=== PATIENT | female | born 1970 | race Caucasian/White ===

== ENCOUNTER → 2018-08-29 | Outpatient (CLI) | payer OTHER ==
--- NOTE | 2018-08-29 15:37 | Diagnostic Imaging Report ---
TECHNIQUE: Magnetic resonance imaging of the RIGHT HIP was performed WITHOUT injected contrast. HISTORY: Pain COMPARISON: None available. FINDINGS: Bone: Red marrow reconversion. No osteonecrosis or acute fracture. Femoroacetabular Joint: Acetabular labrum: No displaced labral tear. Articular Cartilage: No focal defect. Muscle and tendons: Gluteal tendons on the greater trochanter are intact. Overlying bursitis. Soft tissues: Otherwise, unremarkable. IMPRESSION: Right trochanteric bursitis Right marrow reconversion. Signed by: Dr. Fred Ann M.D. on 08/29/2018 3:33 PM
== END ==
LOC: MRI 14:25
PROVIDERS: ATTEND Specialist
DX: S76.011A Strain of muscle, fascia and tendon of right hip, initial encounter (principal)

== ENCOUNTER 2018-10-09 15:51 | Outpatient (RCR) | payer OTHER | END 2018-10-16 | LOC: PT 15:51 | PROVIDERS: ATTEND Specialist | DX: S76.011D Strain of muscle, fascia and tendon of right hip, subsequent encounter (principal); M25.551 Pain in right hip; M25.651 Stiffness of right hip, not elsewhere classified; M62.81 Muscle weakness (generalized); R26.89 Other abnormalities of gait and mobility ==

== ENCOUNTER 2018-10-22 14:52 | Outpatient (RCR) | payer OTHER | END 2018-11-13 | LOC: PT 14:52 | PROVIDERS: ATTEND Specialist | DX: S76.011D Strain of muscle, fascia and tendon of right hip, subsequent encounter (principal); M62.81 Muscle weakness (generalized); M25.551 Pain in right hip; M25.651 Stiffness of right hip, not elsewhere classified; R26.89 Other abnormalities of gait and mobility | CPT/HCPCS: 97139 ==